=== PATIENT | male | born 1975 | race Hispanic/Latino ===

== ENCOUNTER 2021-02-01 01:23 | Emergency (ER) | payer SELFPAY ==
[2021-02-01] MEDS ORDERED: LIDOCAINE 2%/EPINEPHRINE 1:200,000 VIAL (20 ML) INFILTRATI ONE (01:28)
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
[2021-02-01] MEDS ORDERED: LACTATED RINGERS 1,000 ML IV ONE (01:35)
[2021-02-01] MEDS: SODIUM CHLORIDE 0.9% IRR 500 ML BOTTLE IR ONE ×2 (01:40→03:29)
[2021-02-01] MEDS ORDERED: LORazepam 2 MG/ML VIAL IV STA (03:06)
[2021-02-01] MEDS ORDERED: HALOPERIDOL LACTATE 5 MG/1 ML INJ IV STA (03:06)
[2021-02-01] MEDS ORDERED: HALOPERIDOL LACTATE 5 MG/1 ML INJ ONE (03:06)
[2021-02-01] MEDS ORDERED: LORazepam 2 MG/ML VIAL ONE (03:07)
[2021-02-01 04:52] LABS: Hematocrit 46.1 % (35.5-45.6)
[2021-02-01 05:07] LABS: Calcium 8.8 mg/dL (8.4-10.2)
[2021-02-01] MEDS ORDERED: BACITRACIN ZINC OINT 28.4 GM TP STA (05:12)
[2021-02-01] MEDS: POTASSIUM CHLORIDE 10 MEQ 10 MEQ/100 ML BAG IV SCH ×4 (05:37→08:50)
[2021-02-01] MEDS ORDERED: D5W/0.45% NACL 1,000 ML IV SCH (06:00)
[2021-02-01] MEDS ORDERED: SODIUM CHLORIDE 0.9% 500 ML 500 ML ONE (08:46)
[2021-02-01] MEDS ORDERED: SODIUM CHLORIDE 0.9% 500 ML 500 ML IV ONE (08:48)
[2021-02-01 10:57] VITALS: BP 120/90
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
== END 2021-02-01 11:02 | disposition home or self-care (01) ==
LOC: ED 01:23
DX: S01.01XA Laceration without foreign body of scalp, initial encounter (principal); S01.81XA Laceration without foreign body of other part of head, initial encounter; E87.6 Hypokalemia; F10.129 Alcohol abuse with intoxication, unspecified; Z79.899 Other long term (current) drug therapy; Y08.89XA Assault by other specified means, initial encounter; Y93.89 Activity, other specified; Y92.89 Other specified places as the place of occurrence of the external cause; Y99.8 Other external cause status
CPT/HCPCS: 12052; 36415; 70450; 72125; 80048; 82550; 83735; 85014; 85018; 85049; 96361; 96365; 96366; 96375; 99284; J1630; J2060; J3480; J7040; J7120; 80320; J7070; G0480

== ENCOUNTER 2021-02-13 06:12 | Emergency (ER) | payer SELFPAY ==
[2021-02-13 06:21] VITALS: BP 176/119
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
== END 2021-02-13 08:50 | disposition home or self-care (01) ==
LOC: ED 06:12
DX: I10 Essential (primary) hypertension (principal); Z48.02 Encounter for removal of sutures; Z79.899 Other long term (current) drug therapy
CPT/HCPCS: 99282